=== PATIENT | male | born 1980 | race Caucasian/White ===

== ENCOUNTER 2016-07-23 23:16 | Emergency (ER) | payer OTHER ==
[~2016-07-23] VITALS: Ht 170.2 cm; Wt 90.7 kg
[2016-07-23 23:21] VITALS: BP 145/98
--- NOTE | 2016-07-23 23:25 | NUR ---
PT TAKEN TO [facility]
--- NOTE | 2016-07-23 23:29 | NUR ---
Dr. Redman evaluating patient
[2016-07-23] MEDS ORDERED: ALBUTEROL SULFATE/IPRATROPIU 3 ML SOL IH ONE ×2 (23:30)
[2016-07-23] MEDS ORDERED: methylPREDNISolone SS 125 MG in WATER STERILE 2 ML IM ONE (23:30)
--- NOTE | 2016-07-23 23:34 | NUR ---
RT WITH PATIENT
--- NOTE | 2016-07-23 23:35 | NUR ---
36Y/M PATIENT BIB FAMILY TO ED WITH C/O SOB X 3 DAYS. PATIENT STATES HAVING DIFFICULTY BREATHING AND WHEEZING X 3 DAYS, NO FEVER. AAO X4, AMBULATORY WITH STEADY GAIT. RESPIRATIONS ROOM AIR, LABORED, BL LUGS WHEEZING. VSS, ER MD MADE AWARE OF PATIENT STATUS.
--- NOTE | 2016-07-23 23:48 | NUR ---
PT MOVED TO BED 8
--- NOTE | 2016-07-24 00:20 | NUR ---
Patient discharged with v/s stable. Written and verbal after care instructions given and explained. Patient alert, oriented and verbalized understanding of instructions. Ambulatory with steady gait. All questions addressed prior to discharge. ID band removed. Patient advised to follow up with PMD. Rx of PRENISONE 50 MG, ALBUTEROL 90 MCG/ACTUATION INHALATION given. Patient educated on indication of medication including possible reaction and side effects. Opportunity to ask questions provided and answered.
[2016-07-24 00:22] VITALS: BP 132/82
== END 2016-07-24 00:20 | disposition home or self-care (01) ==
LOC: MED 23:16
DX: J45.901 Unspecified asthma with (acute) exacerbation (principal); F17.210 Nicotine dependence, cigarettes, uncomplicated; Z90.89 Acquired absence of other organs
CPT/HCPCS: 71010; 94640; 96372; 99283; J2930; J7620

== ENCOUNTER 2016-12-18 00:41 | Emergency (ER) | payer OTHER ==
[~2016-12-18] VITALS: Ht 167.6 cm; Wt 90.7 kg
[2016-12-18 00:49] VITALS: BP 129/81
--- NOTE | 2016-12-18 01:38 | NUR ---
Patient ambulated to bed 6. RN evaluating patient at bedside.
--- NOTE | 2016-12-18 01:40 | NUR ---
PATIENT PRESENTS TO ED WITH SOB . PT DENIES N/V/D; SKIN IS PINK/WARM/DRY; AAOX4 WITH EVEN AND STEADY GAIT; LUNGS CLEAR BL; HR EVEN AND REGULAR; PT DENIES ANY FEVER, CP, OR COUGH AT THIS TIME; PATIENT STATES PAIN OF 8/10 AT THIS TIME; VSS; PATIENT POSITIONED FOR COMFORT; HOB ELEVATED; BEDRAILS UP X2; BED DOWN. ER MD MADE AWARE OF PT STATUS.
--- NOTE | 2016-12-18 01:49 | NUR ---
Dr. Shaw evaluating patient at bedside.
[2016-12-18] MEDS ORDERED: ALBUTEROL SULFATE/IPRATROPIU 3 ML SOL IH ONE (01:55)
[2016-12-18] MEDS ORDERED: methylPREDNISolone SS 125 MG in WATER STERILE 2 ML IM ONE (01:55)
[2016-12-18 02:30] VITALS: BP 129/81
--- NOTE | 2016-12-18 02:30 | NUR ---
Patient discharged with v/s stable. Written and verbal after care instructions given and explained. Patient alert, oriented and verbalized understanding of instructions. Ambulatory with steady gait. All questions addressed prior to discharge. ID band removed. Patient advised to follow up with PMD. Rx of ALBUTEROL AND PREDNISONE given. Patient educated on indication of medication including possible reaction and side effects. Opportunity to ask questions provided and answered.
== END 2016-12-18 02:30 | disposition home or self-care (01) ==
LOC: MED 00:41
DX: J45.901 Unspecified asthma with (acute) exacerbation (principal); R03.0 Elevated blood-pressure reading, without diagnosis of hypertension
CPT/HCPCS: 71010; 94640; 96372; 99283; J2930; J7620

== ENCOUNTER 2019-04-01 06:20 | Emergency (ER) | payer MEDICAID, OTHER ==
[~2019-04-01] VITALS: Ht 170.2 cm; Wt 99.8 kg
[2019-04-01 06:27] VITALS: BP 158/86
--- NOTE | 2019-04-01 06:27 | NUR ---
PT AMBULATED TO ER BED 7
[2019-04-01] MEDS ORDERED: ACETAMINOPHEN EXTRA STRENGTH 500 MG TAB PO ONE (06:30)
--- NOTE | 2019-04-01 06:30 | NUR ---
38 Y/O MALE C/O FEVER, SOB X LAST NIGHT. PT ALSO SAYS HE HAS A DOYLE AND RATES IT 5/10 AND DESCRIBES IT THROBBING. LUNG SOUNDS ARE WHEEZING THROUGHOUT. SOB PRESENT. PT IS ON 2L NC. SPO2 IS 95%. NO USE OF ACCESSORY MUSCLE. PRODUCTIVE COUGH PRESENT. DIAPHORESIS PRESENT AND SKIN IS WARM TO TOUCH. PT TEMP AT TRIAGE IS 102.2 ORAL. VSS. MOTHER AT BEDSIDE. A & O X4. NKA. PMH: ASTHMA.
[2019-04-01] MEDS ORDERED: predniSONE 20 MG TAB PO ONE (06:35)
[2019-04-01] MEDS ORDERED: ALBUTEROL SULFATE/IPRATROPIU 3 ML SOL IH ONE (06:35)
[2019-04-01] MEDS ORDERED: ALBUTEROL 0.083% 2.5 MG/3 ML NEBU INH ONE (06:35)
[2019-04-01] MEDS ORDERED: KETOROLAC 60 MG/2 ML VIAL IM ONE (06:40)
--- NOTE | 2019-04-01 07:12 | NUR ---
Pt report given to ALYSSIA PAZ. Transfer of care at this time.
--- NOTE | 2019-04-01 07:14 | NUR ---
REPORT RECEIVED FROM ALYSSIA PERALTA. TRANSFER OF CARE.
[2019-04-01] MEDS ORDERED: DEXAMETHASONE 10 MG/ML VIAL IM ONE (07:15)
[2019-04-01] MEDS ORDERED: CLINDAMYCIN 600 MG/4 ML VIAL IM ONE (07:15)
[2019-04-01] MEDS ORDERED: hydrOXYzine HCL 25 MG TAB PO ONE (07:15)
--- NOTE | 2019-04-01 07:15 | NUR ---
INFLUENZA SWAB PEFORMED, SENT TO LAB.
--- NOTE | 2019-04-01 07:34 | NUR ---
X-RAY AT BEDSIDE.
--- NOTE | 2019-04-01 07:51 | NUR ---
PT GIVEN ICE PACK FOR COOLING MEASURES, POSITIONED FOR COMFORT, FAMILY MEMBER AT BEDSIDE.
--- NOTE | 2019-04-01 08:36 | NUR ---
PT AMBULATED TO RESTROOM WITHOUT DIFFICULTY. TEMPERATURE 99.0, LUNG SOUNDS CLEAR THROUGHOUT, PT STATES HE IS ABLE TO BREATH BETTER WITH NO DIFFICULTY SWALLOWING. PT POSITIONED FOR COMFORT, FAMILY MEMBER AT BEDSIDE.
[2019-04-01 09:21] VITALS: BP 120/72
--- NOTE | 2019-04-01 09:21 | NUR ---
Patient discharged with v/s stable. Written and verbal after care instructions given and explained. Patient alert, oriented and verbalized understanding of instructions. Ambulatory with steady gait. All questions addressed prior to discharge. ID band removed. Patient advised to follow up with PMD. Rx of MOTRIN, PREDNISONE, TAMIFLU, PROMETHAZINE, CLINDAMYCIN given. Patient educated on indication of medication including possible reaction and side effects. Opportunity to ask questions provided and answered.
== END 2019-04-01 09:21 | disposition home or self-care (01) ==
LOC: MED 06:20
DX: J03.90 Acute tonsillitis, unspecified (principal); J10.1 Influenza due to other identified influenza virus with other respiratory manifestations; J45.909 Unspecified asthma, uncomplicated
CPT/HCPCS: 71045; 87804; 94640; 96372; 99284; J1100; J1885; J3490; J7512; J7613; J7620